=== PATIENT | male | born 1990 | race African-American/Black ===

== ENCOUNTER 2017-12-10 20:31 | Emergency (ER) | payer OTHER ==
[2017-12-10] MEDS ORDERED: ASPIRIN 81 MG CHEWABLE TABLETS PO ONE (20:55)
--- NOTE | 2017-12-10 20:55 | PDOC ---
Rapid Medical Evaluation Time Seen by Provider: 12/10/17 20:51 Medical Evaluation: 12/10/17 20:52 I have performed a brief in-person evaluation of this patient. The patient presents with a chief complaint of: Left chest pain radiating down left arm x3 days Pertinent physical exam findings: Lungs CTAB. RRR, S1S2 no m/r/g. Pulses equal bilaterally. No edema present. I have ordered the following: labs, cxr, EKG The patient will proceed to the ED for further evaluation. Discharge Disposition - Diagnosis Chest pain - Referrals - Patient Instructions - Post Discharge Activity
[2017-12-10 20:56] VITALS: BP 117/76; PULSE 78; TEMP 98.2; BMI 34.0
[2017-12-10 21:24] LABS: BASO % 0.5 % (0-2.0); EOS % 1.9 % (0-4.5); HEMATOCRIT 44.4 % (35.4-49); HEMOGLOBIN 14.2 GM/dL (11.7-16.9); MCH 26.2 pg (25.7-33.7); MCHC 31.9 g/dl (32.0-35.9); MEAN CELL VOLUME 82.1 fl (80-96); MEAN PLT VOLUME 7.6 fl (7.5-11.1); NEUT % 61.6 % (42.8-82.8); PLATELET COUNT 174 K/MM3 (134-434); RBC 5.41 M/mm3 (4.00-5.60); RDW 14.8 % (11.9-15.9); WHITE BLOOD COUNT 6.4 K/mm3 (4.0-10.0)
[2017-12-10 21:38] LABS: PROTHROMBIN TIME (PATIENT) 11.3 SEC (9.98-11.88)
--- NOTE | 2017-12-10 21:43 | PDOC ---
History of Present Illness - General Chief Complaint: Pain Stated Complaint: CHEST PAIN Time Seen by Provider: 12/10/17 20:51 History Source: Patient Exam Limitations: No Limitations - History of Present Illness Initial Comments: CHIEF COMPLAINT: 27 y/o afebrile male with no significant PMH c/o left sided chest pain for the past 4 days. HISTORY OF PRESENT ILLNESS: The patient admits he does ecstasy every day. He believes he had a bad batch of ecstasy 4 days ago because that's when the chest pain started. He was rushed to [facility] at that time and had a full cardiac work up which was normal. He states since that time he has continued to have intermittent left sided chest pain every day that radiates to his left arm and back. He denies f/c, n/v/d, SOB, cough, hemoptysis, abd pain and all other symptoms. He has not taken anything for pain. Vital signs on arrival are within normal limits. REVIEW OF SYSTEMS: GENERAL/CONSTITUTIONAL: No fever/chills. No weakness. No weight change. HEAD, EYES, EARS, NOSE AND THROAT: No change in vision. No ear pain or discharge. No sore throat. CARDIOVASCULAR: +chest pain. No shortness of breath. RESPIRATORY: No cough, wheezing, or hemoptysis. GASTROINTESTINAL: No abd pain, nausea, vomiting, diarrhea. GENITOURINARY: No dysuria, frequency, or change in urination. MUSCULOSKELETAL: No joint or muscle swelling or pain. No neck or back pain. SKIN: No rash or easy bruising. NEUROLOGIC: No headache, vertigo, loss of consciousness, or loss of sensation. PHYSICAL EXAM: GENERAL: The patient is awake, alert, and fully oriented, in no acute distress. He is well appearing and ambulatory, in NAD or obvious discomfort. HEAD: Normal with no signs of trauma. ENT: Pupils equal, round and reactive to light, extraocular movements intact, sclera anicteric, conjunctiva clear. Neck supple. LUNGS: Clear to auscultation bilaterally. Normal excursion. No respiratory distress or use of accessory muscles. CHEST WALL: Reproducible pain with palpation of left chest wall and left midaxillary region. CV: RRR, S1/S2, no MRG. Cap refill < 2 sec. ABDOMEN: Soft, non-distended, non-tender even to deep palpation, no hepatomegaly or splenomegaly, no masses. EXTREMITIES: Normal range of motion, no edema. NEUROLOGICAL: Normal speech, normal gait. CN II-XII grossly intact. PSYCH: Normal mood, normal affect. SKIN: Warm, dry, normal turgor, no rashes or lesions noted. Past History - Past Medical History Allergies/Adverse Reactions: Allergies Allergy/AdvReac Type Severity Reaction Status Date / Time No Known Allergies Allergy Verified 12/10/17 20:53 COPD: No Other medical history: Pt denies - Suicide/Smoking/Psychosocial Hx Smoking History: Never smoked Have you smoked in the past 12 months: Yes Number of Cigarettes Smoked Daily: 10 Information on smoking cessation initiated: No Hx Alcohol Use: No Drug/Substance Use Hx: No Substance Use Type: None *Physical Exam - Vital Signs Last Vital Signs Temp Pulse Resp BP Pulse Ox 98.2 F 78 20 117/76 99 12/10/17 20:54 12/10/17 20:54 12/10/17 20:54 12/10/17 20:54 12/10/17 20:54 Heart Score/ECG Review - ECG Intrepretation Comment:: Twelve-lead EKG was performed and reviewed by me. There is normal sinus rhythm with a normal rate. The axis is normal. The intervals are normal. There are no ST or T wave abnormalities. Impression: Normal twelve-lead EKG ED Treatment Course - LABORATORY CBC & Chemistry Diagram: 12/10/17 21:15 12/10/17 21:15 - ADDITIONAL ORDERS Additional order review: Laboratory Results 12/10/17 12/10/17 21:15 21:15 PT with INR 11.30 INR 1.00 Sodium 139 Potassium 4.2 Chloride 105 Carbon Dioxide 29 Anion Gap 5 L BUN 11 Creatinine 1.0 Creat Clearance w eGFR > 60 Random Glucose 96 Calcium 8.4 L Magnesium 2.0 Total Bilirubin 0.3 AST 50 H ALT 22 Alkaline Phosphatase 59 Creatine Kinase 242 Creatine Kinase Index 0.5 CK-MB (CK-2) 1.278 Troponin I < 0.02 Total Protein 7.6 Albumin 4.2 12/10/17 21:15 RBC 5.41 MCV 82.1 MCHC 31.9 L RDW 14.8 MPV 7.6 Neutrophils % 61.6 Lymphocytes % 30.0 Monocytes % 6.0 Eosinophils % 1.9 Basophils % 0.5 - Medications Given in the ED: ED Medications Discontinued Medications Generic Name Dose Route Start Last Admin Trade Name Estefani PRN Reason Stop Dose Admin Aspirin 162 mg 12/10/17 20:55 12/10/17 22:39 Asa - PO 12/10/17 20:56 Not Given ONCE ONE Ketorolac Tromethamine 60 mg 12/10/17 22:23 12/10/17 22:33 Toradol Injection - IM 12/10/17 22:24 60 mg ONCE ONE Administration Medical Decision Making - Medical Decision Making A/P: 27 y/o male who does ecstasy every day with left sided CP x 4 days, with negative cardiac work up at [facility] 4 days ago. Plan is as follows: 1. EKG 2. Labs 3. CXR EKG ok CXR IMPRESSION: (wet read) No acute disease. Labs unremarkable. Most likely musculoskeletal pain. Will give IM toradol. Gave the patient the results. Strongly encouraged him to stop using ecstasy every day. Suggested he take 600mg of motrin every 6 hours for pain and ice affected area. Pt instructed to f/u with his doctor within 1 week and return to the ER with any worsening or concerning symptoms. The patient verbalizes understanding of all instructions, has no further questions and is awaiting discharge. *DC/Admit/Observation/Transfer Diagnosis at time of Disposition: Musculoskeletal chest pain Chest pain Qualifiers: Chest pain type: unspecified Qualified Code(s): R07.9 - Chest pain, unspecified - Discharge Dispostion Disposition: HOME Condition at time of disposition: Good - Referrals Referrals: Serg Fox MD [Staff Physician] - - Patient Instructions Printed Discharge Instructions: DI for Musculoskeletal Pain, DI for Atypical Chest Pain Additional Instructions: Discharge instructions: -All of the tests we performed were normal -Please take 600mg of motrin every 6 hours with food for pain -Apply ice to the affected area -Follow up with your doctor within 1 week -Discontinue use of ecstasy -Return to the ER with any worsening or concerning symptoms. - Post Discharge Activity
[2017-12-10 22:02] LABS: ALBUMIN 4.2 g/dl (3.4-5.0); ANION GAP 5 (8-16); BILIRUBIN,TOTAL 0.3 mg/dL (0.2-1.0); BLOOD UREA NITROGEN 11 mg/dL (7-18); CALCIUM 8.4 mg/dL (8.5-10.1); CHLORIDE 105 mmol/L (98-107); CO2 29 mmol/L (21-32); GLUCOSE,RANDOM 96 mg/dL (74-106); POTASSIUM 4.2 mmol/L (3.5-5.1); SGOT/AST 50 U/L (15-37); SGPT/ALT 22 U/L (12-78); SODIUM 139 mmol/L (136-145); TOT PROT 7.6 g/dl (6.4-8.2)
[2017-12-10 22:05] LABS: ALK PHOS 59 U/L (45-117)
[2017-12-10] MEDS ORDERED: KETOROLAC TROMETHAMINE 60 MG/2 ML VIAL IM ONE (22:23)
[2017-12-10] MEDS ORDERED: KETOROLAC TROMETHAMINE 60 MG/2 ML VIAL ONE (22:24)
--- NOTE | 2017-12-10 23:02 | PDOC ---
*Physical Exam - Vital Signs Last Vital Signs Temp Pulse Resp BP Pulse Ox 98.2 F 78 20 117/76 99 12/10/17 20:54 12/10/17 20:54 12/10/17 20:54 12/10/17 20:54 12/10/17 20:54 ED Treatment Course - LABORATORY CBC & Chemistry Diagram: 12/10/17 21:15 12/10/17 21:15 - ADDITIONAL ORDERS Additional order review: Laboratory Results 12/10/17 12/10/17 21:15 21:15 PT with INR 11.30 INR 1.00 Sodium 139 Potassium 4.2 Chloride 105 Carbon Dioxide 29 Anion Gap 5 L BUN 11 Creatinine 1.0 Creat Clearance w eGFR > 60 Random Glucose 96 Calcium 8.4 L Magnesium 2.0 Total Bilirubin 0.3 AST 50 H ALT 22 Alkaline Phosphatase 59 Creatine Kinase 242 Creatine Kinase Index 0.5 CK-MB (CK-2) 1.278 Troponin I < 0.02 Total Protein 7.6 Albumin 4.2 12/10/17 21:15 RBC 5.41 MCV 82.1 MCHC 31.9 L RDW 14.8 MPV 7.6 Neutrophils % 61.6 Lymphocytes % 30.0 Monocytes % 6.0 Eosinophils % 1.9 Basophils % 0.5 - Medications Given in the ED: ED Medications Discontinued Medications Generic Name Dose Route Start Last Admin Trade Name Estefani PRN Reason Stop Dose Admin Aspirin 162 mg 12/10/17 20:55 12/10/17 22:39 Asa - PO 12/10/17 20:56 Not Given ONCE ONE Ketorolac Tromethamine 60 mg 12/10/17 22:23 12/10/17 22:33 Toradol Injection - IM 12/10/17 22:24 60 mg ONCE ONE Administration Medical Decision Making - Medical Decision Making 12/10/17 23:02 agree with care from VIO[facility] G[facility] *DC/Admit/Observation/Transfer Diagnosis at time of Disposition: Musculoskeletal chest pain Chest pain Qualifiers: Chest pain type: unspecified Qualified Code(s): R07.9 - Chest pain, unspecified - Discharge Dispostion Disposition: HOME Condition at time of disposition: Good - Referrals Referrals: Serg Fox MD [Staff Physician] - - Patient Instructions Printed Discharge Instructions: DI for Atypical Chest Pain, DI for Musculoskeletal Pain Additional Instructions: Discharge instructions: -All of the tests we performed were normal -Please take 600mg of motrin every 6 hours with food for pain -Apply ice to the affected area -Follow up with your doctor within 1 week -Discontinue use of ecstasy -Return to the ER with any worsening or concerning symptoms. - Post Discharge Activity
--- NOTE | 2017-12-11 17:06 | EKG ---
Test Reason : Blood Pressure : / mmHG Vent. Rate : 067 BPM Atrial Rate : 067 BPM P-R Int : 186 ms QRS Dur : 112 ms QT Int : 400 ms P-R-T Axes : 061 030 031 degrees QTc Int : 422 ms NORMAL SINUS RHYTHM POSSIBLE LEFT ATRIAL ENLARGEMENT INCOMPLETE RIGHT BUNDLE BRANCH BLOCK BORDERLINE ECG NO PREVIOUS ECGS AVAILABLE Confirmed by AFSHIN LOUIS MD ([id number]) on 12/11/2017 5:06:35 PM Referred By: Confirmed By:AFSHIN LOUIS MD
== END 2017-12-10 23:06 | disposition home or self-care (01) ==
LOC: JER 20:31
PROC: 3E0233Z Introduction of Anti-inflammatory into Muscle, Percutaneous Approach (ICD-10-PCS; principal; 2017-12-10)
DX: R07.89 Other chest pain (principal)
CPT/HCPCS: 36415; 71046-TC-FY; 80053; 82550; 82553; 83735; 84484; 85025; 85610; 93005; 93010; 96372; 99282-25

== ENCOUNTER 2018-03-04 18:57 | Emergency (ER) | payer SELFPAY ==
--- NOTE | 2018-03-04 19:02 | PDOC ---
Attending Attestation - Physicial Exam PE: 03/04/18 23:58 GENERAL:(+)initially somnolent Well developed, well nourished. No acute distress. HEENT: Normocephalic, atraumatic. PERRLA, EOMI. No conjunctival pallor. Sclera are non- icteric. Moist mucous membranes. Oropharynx is clear. NECK: Supple. Full ROM. No JVD. Carotid pulses 2+ and symmetric, without bruits. No thyromegaly. No lymphadenopathy. CARDIOVASCULAR:(+)tachycardic Regular rhythm. No murmurs, rubs, or gallops. Distal pulses are 2+ and symmetric. PULMONARY: No evidence of respiratory distress. Lungs clear to auscultation bilaterally. No wheezing, rales or rhonchi. ABDOMINAL: Soft. Non-tender. Non-distended. No rebound or guarding. No organomegaly. Normoactive bowel sounds. MUSCULOSKELETAL Normal range of motion at all joints. No bony deformities or tenderness. No CVA tenderness. EXTREMITIES: No cyanosis. No clubbing. No edema. No calf tenderness. SKIN: Warm and dry. Normal capillary refill. No rashes. No jaundice. NEUROLOGICAL: Alert, awake, appropriate. Cranial nerves 2-12 intact. No deficits to light touch and temperature in face, upper extremities and lower extremities. No motor deficits in the in face, upper extremities and lower extremities. Normoreflexic in the upper and lower extremities. Normal speech. Toes are down- going bilaterally. Gait deferred. PSYCHIATRIC: Cooperative. Good eye contact. Appropriate mood and affect. Documentation prepared by Jennyfer Heller, acting as mobile paramedical examiner for Hailee Neff MD. <Jennyfer Heller - Last Filed: 03/04/18 23:58> - Resident Resident Name: Silverio Yi - ED Attending Attestation I have performed the following: I have examined & evaluated the patient, The case was reviewed & discussed with the resident, I agree w/resident's findings & plan, Exceptions are as noted - HPI HPI: 03/04/18 19:45 27-year-old male brought in by ambulance for altered mental status and somnolence after taking 4 doses of MOLY Poison control [phone], was consulted - Medical Decision Making 03/05/18 00:05 pt took ecstasy and now is alert and conversant, ambulatory pulse =77, temperature=98.8 labs reviewed pt will be discharged home <Hailee Neff - Last Filed: 03/05/18 00:06>
[2018-03-04 19:05] VITALS: BMI 30.8
--- NOTE | 2018-03-04 19:11 | PDOC ---
History of Present Illness - General Stated Complaint: OVERDOSE Time Seen by Provider: 03/04/18 19:02 - History of Present Illness Initial Comments: 03/04/18 19:32 Mr. Garrison is a 27 yo male w/ no pmh BIBA 2-3 hours after he reports taking 4 doses of hemalatha orally. He is currently reporting that he feels like he "cannot get enough air." The patient denies chest pain, headache and dizziness. Denies fever, chills, nausea, vomit, diarrhea and constipation. Denies dysuria, frequency, urgency and hematuria. Allergies: NKDA Past History - Past Medical History Allergies/Adverse Reactions: Allergies Allergy/AdvReac Type Severity Reaction Status Date / Time No Known Allergies Allergy Verified 12/10/17 20:53 COPD: No - Suicide/Smoking/Psychosocial Hx Smoking History: Never smoked Have you smoked in the past 12 months: Yes Number of Cigarettes Smoked Daily: 10 Hx Alcohol Use: No Drug/Substance Use Hx: No Substance Use Type: None Review of Systems - Review of Systems Comments:: 03/04/18 19:35 Unable to obtain further *Physical Exam - Physical Exam Comments: 03/04/18 19:36 GENERAL: +Arousable but altered. Patient oriented to person only. HEAD: No signs of trauma, normocephalic, atraumatic EYES: PERRLA, EOMI, sclera anicteric, conjunctiva clear ENT: Auricles normal inspection, hearing grossly normal, nares patent, oropharynx clear without exudates. Moist mucosa NECK: Normal ROM, supple, no lymphadenopathy, JVD, or masses LUNGS: No distress, speaks full sentences, clear to auscultation bilaterally HEART: Regular rate and rhythm, normal S1 and S2, no murmurs, rubs or gallops, peripheral pulses normal and equal bilaterally. ABDOMEN: Soft, nontender, normoactive bowel sounds. No guarding, no rebound. No masses EXTREMITIES: Normal inspection, Normal range of motion, no edema. No clubbing or cyanosis. NEUROLOGICAL: +Unable to assess SKIN: Warm, Dry, normal turgor, no rashes or lesions noted. ED Treatment Course - LABORATORY CBC & Chemistry Diagram: 03/04/18 20:00 03/04/18 20:00 Medical Decision Making - Medical Decision Making 03/04/18 19:49 Mr. Garrison is a 27 yo male w/ no known pmh who presents for overdose evaluation. Poison control contacted and workup begun for acute coinciding conditions. 03/04/18 22:26 Mr. Garrison reporting that he feels better at this time - is now able to converse and provides history that he took MDMA earlier but denies quantity previously reported. 1L ns given for hydration. KDUR given for hypokalemia noted. Patient able to ambulate without difficulty. Patient passed PO challenge. Patient alert and oriented and clinically sober. Discharging to home. Laboratory Results - last 24 hr 03/04/18 03/04/18 03/04/18 19:13 20:00 20:00 WBC 10.5 H D RBC 5.43 Hgb 14.5 Hct 44.4 MCV 81.8 MCH 26.7 MCHC 32.7 RDW 14.8 Plt Count 209 D MPV 7.7 Neutrophils % 77.2 D Lymphocytes % 12.9 D Monocytes % 9.2 Eosinophils % 0.1 D Basophils % 0.6 Sodium Potassium Chloride Carbon Dioxide Anion Gap BUN Creatinine Creat Clearance w eGFR POC Glucometer [id number] Random Glucose Calcium Total Bilirubin AST ALT Alkaline Phosphatase Creatine Kinase Creatine Kinase Index CK-MB (CK-2) Troponin I Total Protein Albumin Urine Color Ltyellow Urine Appearance Clear Urine pH 7.0 Ur Specific [place] 1.010 Urine Protein Negative Urine Glucose (UA) Negative Urine Ketones Trace H Urine Blood Negative Urine Nitrite Negative Urine Bilirubin Negative Urine Urobilinogen Negative Ur Leukocyte Esterase Negative Salicylates Opiates Screen Methadone Screen Acetaminophen Barbiturate Screen Phencyclidine Screen Ur Amphetamines Screen MDMA (Ecstasy) Screen Benzodiazepines Screen Cocaine Screen U Marijuana (THC) Screen 03/04/18 03/04/18 20:00 20:00 WBC RBC Hgb Hct MCV MCH MCHC RDW Plt Count MPV Neutrophils % Lymphocytes % Monocytes % Eosinophils % Basophils % Sodium 134 L Potassium 3.1 L D Chloride 101 Carbon Dioxide 19 L D Anion Gap 14 BUN 15 D Creatinine 1.2 Creat Clearance w eGFR > 60 POC Glucometer Random Glucose 107 H Calcium 9.2 Total Bilirubin 0.7 D AST 34 D ALT 34 D Alkaline Phosphatase 54 Creatine Kinase 264 Creatine Kinase Index 0.3 CK-MB (CK-2) < 1.000 Troponin I < 0.02 Total Protein 8.6 H Albumin 4.8 Urine Color Urine Appearance Urine pH Ur Specific [place] Urine Protein Urine Glucose (UA) Urine Ketones Urine Blood Urine Nitrite Urine Bilirubin Urine Urobilinogen Ur Leukocyte Esterase Salicylates <4.0 Opiates Screen Negative Methadone Screen Negative Acetaminophen <2.0 Barbiturate Screen Negative Phencyclidine Screen Negative Ur Amphetamines Screen Negative MDMA (Ecstasy) Screen Negative Benzodiazepines Screen Negative Cocaine Screen Negative U Marijuana (THC) Screen Positive *DC/Admit/Observation/Transfer Diagnosis at time of Disposition: MDMA abuse - Discharge Dispostion Disposition: HOME - Referrals - Patient Instructions Printed Discharge Instructions: Drug Abuse and Drug Addiction Additional Instructions: Please return to ER if any fever, chills, pain, or other concerning symptoms. Follow-up with primary care provider later this week for further evaluation. - Post Discharge Activity
[2018-03-04 20:12] LABS: BASO % 0.6 % (0-2.0); EOS % 0.1 % (0-4.5); HEMATOCRIT 44.4 % (35.4-49); HEMOGLOBIN 14.5 GM/dL (11.7-16.9); LYMPH % 12.9 % (8-40); MCH 26.7 pg (25.7-33.7); MCHC 32.7 g/dl (32.0-35.9); MEAN CELL VOLUME 81.8 fl (80-96); MEAN PLT VOLUME 7.7 fl (7.5-11.1); MONO % 9.2 % (3.8-10.2); NEUT % 77.2 % (42.8-82.8); PLATELET COUNT 209 K/MM3 (134-434); RBC 5.43 M/mm3 (4.00-5.60); RDW 14.8 % (11.9-15.9); WHITE BLOOD COUNT 10.5 K/mm3 (4.0-10.0)
[2018-03-04 20:24] LABS: URINE APPEARANCE CLEAR; URINE BILIRUBIN NEGATIVE (<2.0 mg/dL); URINE COLOR LTYELLOW; URINE GLUCOSE (UA) NEGATIVE (NEGATIVE); URINE KETONE TRACE (NEGATIVE); URINE LEUK ESTERASE NEGATIVE (NEGATIVE); URINE NITRITE NEGATIVE (NEGATIVE); URINE PROTEIN NEGATIVE (NEGATIVE); URINE UROBILINOGEN NEGATIVE mg/dL (0.2-1.0)
[2018-03-04 20:33] LABS: COCAINE, UR NEGATIVE ng/ml (CUTOFF=300); METHADONE, UR NEGATIVE ng/ml (CUTOFF=300); OPIATES, URI NEGATIVE ng/ml (CUTOFF=300); PHENCYCLIDINE,URINE NEGATIVE ng/ml (CUTOFF=25); URINE AMPHETAMINES NEGATIVE ng/ml (CUTOFF=500); URINE BARBITURATES NEGATIVE ng/ml (CUTOFF=200); URINE BENZODIAZEPINES NEGATIVE ng/ml (CUTOFF=200)
[2018-03-04 20:41] LABS: ALBUMIN 4.8 g/dl (3.4-5.0); ANION GAP 14 (8-16); BILIRUBIN,TOTAL 0.7 mg/dL (0.2-1.0); BLOOD UREA NITROGEN 15 mg/dL (7-18); CALCIUM 9.2 mg/dL (8.5-10.1); CHLORIDE 101 mmol/L (98-107); CO2 19 mmol/L (21-32); CREATININE 1.2 mg/dL (0.7-1.3); GLUCOSE,RANDOM 107 mg/dL (74-106); SGPT/ALT 34 U/L (12-78); SODIUM 134 mmol/L (136-145); TOT PROT 8.6 g/dl (6.4-8.2)
[2018-03-04 20:52] LABS: ALK PHOS 54 U/L (45-117); SALICYLATE <4.0 mg/dL
[2018-03-04 20:58] LABS: POTASSIUM 3.1 mmol/L (3.5-5.1); SGOT/AST 34 U/L (15-37)
[2018-03-04 20:59] LABS: ACETAMINOPHEN <2.0 ug/mL
[2018-03-04] MEDS ORDERED: SODIUM CHLORIDE 1,000 ML IV STA (21:18)
[2018-03-04] MEDS ORDERED: POTASSIUM CHLORIDE TABS 20 MEQ TABLET.ER (FP) PO ONE (22:30)
[2018-03-04] MEDS ORDERED: ENOXAPARIN NA (PORCINE) 120 MG/0.8 ML DISP.SYRIN SQ SCH (23:45)
[2018-03-05] MEDS ORDERED: POTASSIUM CHLORIDE TABS 20 MEQ TABLET.ER (FP) PO ONE
[2018-03-05 00:11] VITALS: BP 136/61; PULSE 65; TEMP 98.4
--- NOTE | 2018-03-05 11:50 | EKG ---
Test Reason : Blood Pressure : / mmHG Vent. Rate : 093 BPM Atrial Rate : 093 BPM P-R Int : 178 ms QRS Dur : 116 ms QT Int : 404 ms P-R-T Axes : 068 055 048 degrees QTc Int : 502 ms NORMAL SINUS RHYTHM POSSIBLE LEFT ATRIAL ENLARGEMENT INCOMPLETE RIGHT BUNDLE BRANCH BLOCK PROLONGED QT ABNORMAL ECG WHEN COMPARED WITH ECG OF 10-DEC-2017 21:15, QT HAS LENGTHENED Confirmed by ANTHONY MADERA, RADHA ([id number]) on 03/05/2018 11:49:49 AM Referred By: Confirmed By:RADHA CRUZ MD
--- NOTE | 2018-03-05 16:06 | EKG ---
Test Reason : Blood Pressure : / mmHG Vent. Rate : 071 BPM Atrial Rate : 071 BPM P-R Int : 162 ms QRS Dur : 106 ms QT Int : 446 ms P-R-T Axes : 067 035 037 degrees QTc Int : 484 ms NORMAL SINUS RHYTHM WITH SINUS ARRHYTHMIA POSSIBLE LEFT ATRIAL ENLARGEMENT INCOMPLETE RIGHT BUNDLE BRANCH BLOCK PROLONGED QT ABNORMAL ECG WHEN COMPARED WITH ECG OF 10-DEC-2017 21:15, QT HAS LENGTHENED Confirmed by ANTHONY MADERA, RADHA ([id number]) on 03/05/2018 4:06:11 PM Referred By: Confirmed By:RADHA CRUZ MD
== END 2018-03-05 00:39 | disposition home or self-care (01) ==
LOC: JER 18:57
PROC: 3E0337Z Introduction of Electrolytic and Water Balance Substance into Peripheral Vein, Percutaneous Approach (ICD-10-PCS; principal; 2018-03-04)
DX: F19.10 Other psychoactive substance abuse, uncomplicated (principal); T65.91XA Toxic effect of unspecified substance, accidental (unintentional), initial encounter; X58.XXXA Exposure to other specified factors, initial encounter; Y93.89 Activity, other specified; Y92.9 Unspecified place or not applicable
CPT/HCPCS: 36415; 80053; 80307; 81003; 82550; 82553; 82962; 84484; 85025; 93005; 93010; 99284-25; J7030